=== PATIENT | female | born 1985 | race Hispanic/Latino ===

== ENCOUNTER 2017-11-05 15:51 | Emergency (ER) | payer BC ==
[2017-11-05 16:09] VITALS: BP 119/84; PULSE 72; RESP 16; TEMP 98.1; O2SAT 98
--- NOTE | 2017-11-05 17:17 | CT ---
PROCEDURE: CT HEAD WITHOUT CONTRAST. HISTORY: headache COMPARISON: None available. TECHNIQUE: Axial computed tomography images were obtained through the head/brain without intravenous contrast. Radiation dose: Total exam DLP = 829.53 mGy-cm. This CT exam was performed using one or more of the following dose reduction techniques: Automated exposure control, adjustment of the mA and/or kV according to patient size, and/or use of iterative reconstruction technique. FINDINGS: HEMORRHAGE: No intracranial hemorrhage. BRAIN: No mass effect or edema. The clarke-white matter differentiation appears intact. Evidence of an empty sella. VENTRICLES: No hydrocephalus. CALVARIUM: Unremarkable. PARANASAL SINUSES: Unremarkable as visualized. No significant inflammatory changes. MASTOID AIR CELLS: Unremarkable as visualized. No inflammatory changes. OTHER FINDINGS: None. IMPRESSION: No acute intracranial pathology identified. Evidence of an empty sella.
--- NOTE | 2017-11-05 17:20 | RAD ---
PROCEDURE: Cervical Spine Radiographs. HISTORY: Posttraumatic pain COMPARISON: None. FINDINGS: BONES: Reversal of the anatomic lordosis with kyphosis. Degree: Mild. DISC SPACES: Normal. SOFT TISSUES: Normal. No prevertebral soft tissue swelling. OTHER FINDINGS: None. IMPRESSION: Mild kyphosis, preserved intervertebral disc spaces and vertebral bodies, posterior elements as visualized
--- NOTE | 2017-11-05 17:28 | ED PDOC ---
HPI: Headache Time Seen by Provider: 11/05/17 16:15 Chief Complaint (Nursing): Headache Chief Complaint (Provider): Head injury History Per: Patient History/Exam Limitations: no limitations Onset/Duration Of Symptoms: Days Current Symptoms Are (Timing): Still Present Additional Complaint(s): 31yo female, presents to ED for evaluation of a headache associated with lightheadedness and mild nausea since the past 6 days. Patient states 6 days ago , she fell down the stairs and hit her head after which she has been experiencing these symptoms. She denies any loss of consciousness, other injuries, weakness, numbness. Otherwise: (-) thunderclap headache, (-) worse headache of life, (-) nausea, (-) vomiting, (-) photophobia, (-) phonophobia, (- ) URI symptoms, (-) fever, (-) trauma, (-) subjective neurological symptoms. Past Medical History Reviewed: Historical Data, Nursing Documentation, Vital Signs Vital Signs: Last Vital Signs Temp 98.1 F 11/05/17 16:04 Pulse 72 11/05/17 16:04 Resp 16 11/05/17 16:04 BP 119/84 11/05/17 16:04 Pulse Ox 98 11/05/17 16:04 - Medical History PMH: No Chronic Diseases - Surgical History Surgical History: Appendectomy (2007) - Family History Family History: States: No Known Family Hx - Allergies Allergies/Adverse Reactions: Allergies Allergy/AdvReac Type Severity Reaction Status Date / Time Yeast AdvReac RASH Verified 11/05/17 16:04 Review of Systems ROS Statement: Except As Marked, All Systems Reviewed And Found Negative Eyes: Negative for: Vision Change Cardiovascular: Positive for: Light Headedness Gastrointestinal: Negative for: Nausea, Vomiting Neurological: Positive for: Headache. Negative for: Weakness, Numbness Physical Exam - Physical Exam Comments: GENERAL APPEARANCE: Patient is awake, alert, oriented x 3, in no acute distress. SKIN: Warm, dry; (-) cyanosis; (-) rash. HEAD: (-) scalp swelling or tenderness, (-) temporal artery tenderness. EYES: (-) conjunctival pallor, (-) scleral icterus. ENMT: (-) sinus tenderness; mucous membranes moist. NECK: (-) tenderness, (-) stiffness, (-) meningismus, (-) lymphadenopathy. CHEST AND RESPIRATORY: (-) rales, (-) rhonchi, (-) wheezes; breath sounds equal bilaterally. HEART AND CARDIOVASCULAR: (-) irregularity; (-) murmur, (-) gallop. ABDOMEN AND GI: Soft; (-) tenderness. EXTREMITIES: (-) deformity. NEURO AND PSYCH: Mental status as above. care associate: Pupils equally reactive; EOMI ; (-) facial asymmetry; tongue and uvula midline. Strength and DTRs symmetric. Babinski normal bilaterally. - ECG O2 Sat by Pulse Oximetry: 98 (RA) Pulse Ox Interpretation: Normal Medical Decision Making Medical Decision Making: Impression: Headache Plan: -- CT Head -- XR C-Spine XR C spine : Mild kyphosis, preserved intervertebral disc spaces and vertebral bodies, posterior elements as visualized. CT HEAD : No acute intracranial pathology identified. Evidence of an empty sella. On reevaluation, patient reports no worsening headache, no dizziness, no nausea. on exam, patient remains AAOx3 in no acute distress, repeat neuro xam shows no acute focal findings. Diagnostic results discussed with the patient in great detail. Advised to follow -up x-ray and CT results with her PMD. Based on history, exam and diagnostic results plan will be for outpatient f/u. Advised to follow up with primary care physician in 1-2 days without fail. Return to the emergency room at any time for any new or worsening symptoms. Patient states she fully agrees with and understands discharge instructions. States that she agrees with the plan and disposition. Verbalized and repeated discharge instructions and plan. I have given the patient opportunity to ask any additional questions. Scribe Attestation: Documented by Era Ann acting as a scribe for Veronica Bentley PA-C. Provider Attestation: All medical record entries made by the Scribe were at my direction and personally dictated by me. I have reviewed the chart and agree that the record accurately reflects my personal performance of the history, physical exam, medical decision making, and the department course for this patient. I have also personally directed, reviewed, and agree with the discharge instructions and disposition. Disposition - Clinical Impression Clinical Impression: Headache, Head injury, Neck strain - Patient ED Disposition Is Patient to be Admitted: No Counseled Patient/Family Regarding: Studies Performed, Diagnosis, Need For Followup - Disposition Disposition: Routine/Home Disposition Time: 18:00 Condition: STABLE Additional Instructions: Thank you for letting us take care of you today. You were treated for headache, s/p head injury, neck strain. The emergency medical care you received today was directed at your acute symptoms. Take tylenol for pain. It may take several days for your symptoms to resolve. Return to the Emergency Department if your symptoms worsen, do not improve, or if you have any other problems. Please contact your doctor in 2 days for re-evaluation and follow up. Bring any paperwork you were given at discharge with you along with any medications you are taking to your follow up visit. Our treatment cannot replace ongoing medical care by a primary care provider (PCP) outside of the emergency department. Thank you for allowing the [facility] team to be part of your care today. If you had an X-Ray or CT scan: A Radiologist will review the ED reading if any change in treatment is needed we will contact you. 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
== END 2017-11-05 18:07 | disposition home or self-care (01) ==
LOC: H.ER 15:51
DX: S09.90XA Unspecified injury of head, initial encounter (principal); R51 Headache; S16.1XXA Strain of muscle, fascia and tendon at neck level, initial encounter; W10.9XXA Fall (on) (from) unspecified stairs and steps, initial encounter